=== PATIENT | female | born 1945 | race Caucasian/White ===

== ENCOUNTER 2020-09-21 14:05 | Inpatient (IN) | payer MEDICARE ==
[2020-09-21] MEDS ORDERED: Nitroglycerin 2% Ointment 1 INCH/1 GM Packet ONE (14:56)
[2020-09-21] MEDS ORDERED: Furosemide 100 MG/10 ML VIAL ONE (14:56)
[2020-09-21 16:09] LABS: Troponin I 0.144 ng/mL (< 0.028)
[2020-09-21] MEDS ORDERED: HumaLOG 300 UNITS/3 ML VIAL SC PRN ×2 (17:47)
[2020-09-21] MEDS ORDERED: Dextrose 5% in Water 1,000 ML IV PRN (17:47)
[2020-09-21] MEDS ORDERED: Dextrose 50% Abboject 50 ML SYRINGE SLOW IVP PRN (17:47)
[2020-09-21] MEDS ORDERED: hydrALAZINE 20 MG/ML VIAL SLOW IVP PRN (18:20)
[2020-09-21 19:24] LABS: Troponin I 0.119 ng/mL (< 0.028)
[2020-09-21] MEDS: Acetaminophen 325 MG TAB PO PRN (20:01)
[2020-09-21] MEDS: Nitroglycerin 2% Ointment 1 INCH/1 GM Packet TOP SCH (20:40)
[2020-09-22] MEDS: Furosemide 40 MG/4 ML VIAL SLOW IVP SCH ×2 (05:20→13:41)
[2020-09-22 05:27] LABS: #Eosinphils 0.3 thou/uL (0.0-0.7); #Lymphocytes 1.6 thou/uL (1.20-3.40); #Monocytes 0.6 thou/uL (0.11-0.59); #Neutrophils 4.4 thou/uL (1.40-6.50); %Basophils 0.4 % (0.0-1.0); %Eosinophils 4.6 % (0.0-10.0); %Lymphocytes 22.7 % (21.0-51.0); %Monocytes 8.4 % (0.0-10.0); %Neutrophils 63.9 % (42.0-75.0); Hemoglobin 10.9 g/dL (12.0-16.0); Mean Corpuscular HGB CONC 33.5 g/dL (32.0-36.0); Mean Corpuscular Hemoglobin 30.1 pg (27.0-31.0); Mean Platelet Volume 7.6 fL (7.4-10.4); Platelet Count 118 thou/uL (130-400); RBC Distribution Width 13.2 % (11.5-14.5); Red Blood Cell (RBC) Count 3.61 mill/uL (4.20-5.40); White Blood Cell (WBC) Count 6.8 thou/uL (4.8-10.8)
[2020-09-22 05:47] LABS: Anion Gap 13 mmol/L (10-20); BUN (Urea Nitrogen) 20 mg/dL (9.8-20.1); Calc. Creatinine Clearance 49 mL/min (70-130); Calcium 8.8 mg/dL (7.8-10.44); Carbon Dioxide 26 mmol/L (23-31); Chloride 105 mmol/L (98-107); Glucose 111 mg/dL (83-110); Potassium 3.4 mmol/L (3.5-5.1); Sodium 141 mmol/L (136-145)
[2020-09-22] MEDS: Nitroglycerin 2% Ointment 1 INCH/1 GM Packet TOP SCH (08:32)
[2020-09-22] MEDS: Aspirin Chewable 81 MG TAB PO SCH (08:32)
[2020-09-22] MEDS: Enoxaparin Sodium 40 MG/0.4 ML SYRINGE SC SCH (08:32)
[2020-09-22] MEDS ORDERED: HYDROcodone/Acetaminophen 5/325 mg Tablet PO PRN (09:30)
[2020-09-22] MEDS ORDERED: Cyclobenzaprine 10 MG TAB PO PRN (09:30)
[2020-09-22] MEDS ORDERED: Dicyclomine 20 MG TAB PO PRN (09:30)
[2020-09-22] MEDS ORDERED: FLUoxetine HCl 10 MG CAP PO SCH (09:45)
[2020-09-22] MEDS ORDERED: Potassium Chloride 20 MEQ TAB PO SCH (09:45)
[2020-09-22] MEDS ORDERED: hydrALAZINE 25 MG TAB PO SCH (09:45)
[2020-09-22] MEDS ORDERED: Magnesium Sulfate 2 GM in Sodium Chloride 0.9% 100 ML IVPB SCH (10:30)
[2020-09-22] MEDS ORDERED: Magnesium 2 GM/50 ML 2 GM in Premix Bag 1 BAG IVPB SCH (10:45)
[2020-09-22] MEDS: hydrALAZINE 25 MG TAB PO SCH ×2 (13:42→20:16)
[2020-09-22] MEDS: Acetaminophen 325 MG TAB PO PRN (20:13)
[2020-09-23 05:14] LABS: #Basophils 0.1 thou/uL (0.0-0.2); #Eosinphils 0.4 thou/uL (0.0-0.7); #Monocytes 0.6 thou/uL (0.11-0.59); #Neutrophils 5.1 thou/uL (1.40-6.50); %Eosinophils 5.3 % (0.0-10.0); %Lymphocytes 24.4 % (21.0-51.0); %Monocytes 7.8 % (0.0-10.0); %Neutrophils 61.6 % (42.0-75.0); Hemoglobin 11.9 g/dL (12.0-16.0); Mean Corpuscular HGB CONC 31.7 g/dL (32.0-36.0); Mean Corpuscular Hemoglobin 28.7 pg (27.0-31.0); Mean Corpuscular Volume 90.4 fL (78.0-98.0); Mean Platelet Volume 7.8 fL (7.4-10.4); Platelet Count 164 thou/uL (130-400); RBC Distribution Width 13.4 % (11.5-14.5); Red Blood Cell (RBC) Count 4.14 mill/uL (4.20-5.40); White Blood Cell (WBC) Count 8.3 thou/uL (4.8-10.8)
[2020-09-23] MEDS: Furosemide 40 MG/4 ML VIAL SLOW IVP SCH ×2 (05:19→12:54)
[2020-09-23 08:21] LABS: Anion Gap 10 mmol/L (10-20); BUN (Urea Nitrogen) 25 mg/dL (9.8-20.1); Calc. Creatinine Clearance 47 mL/min (70-130); Calcium 9.1 mg/dL (7.8-10.44); Carbon Dioxide 30 mmol/L (23-31); Chloride 101 mmol/L (98-107); Glucose 123 mg/dL (83-110); Potassium 3.8 mmol/L (3.5-5.1); Sodium 137 mmol/L (136-145)
[2020-09-23] MEDS: Enoxaparin Sodium 40 MG/0.4 ML SYRINGE SC SCH (09:02)
[2020-09-23] MEDS: Atorvastatin Calcium 10 MG TAB PO SCH (09:03)
[2020-09-23] MEDS: hydrALAZINE 25 MG TAB PO SCH ×3 (09:03→22:47)
[2020-09-23] MEDS: Fenofibrate Nanocrystallized 145 MG TAB PO SCH (09:03)
[2020-09-23] MEDS: Febuxostat 40 MG TAB PO SCH (09:04)
[2020-09-23] MEDS: Aspirin Chewable 81 MG TAB PO SCH (09:04)
[2020-09-23] MEDS: Potassium Bicarbonate/Cit Ac 20 MEQ TAB PO SCH (09:04)
[2020-09-23] MEDS: FLUoxetine HCl 10 MG CAP PO SCH (09:24)
[2020-09-24] MEDS: Furosemide 40 MG/4 ML VIAL SLOW IVP SCH (05:36)
[2020-09-24 05:40] LABS: #Basophils 0.1 thou/uL (0.0-0.2); #Eosinphils 0.4 thou/uL (0.0-0.7); #Lymphocytes 1.7 thou/uL (1.20-3.40); #Monocytes 0.6 thou/uL (0.11-0.59); #Neutrophils 5.1 thou/uL (1.40-6.50); %Basophils 0.7 % (0.0-1.0); %Eosinophils 4.8 % (0.0-10.0); %Lymphocytes 21.2 % (21.0-51.0); %Monocytes 7.6 % (0.0-10.0); %Neutrophils 65.6 % (42.0-75.0); Hemoglobin 11.7 g/dL (12.0-16.0); Mean Corpuscular Hemoglobin 29.7 pg (27.0-31.0); Mean Corpuscular Volume 90.1 fL (78.0-98.0); Mean Platelet Volume 7.8 fL (7.4-10.4); Platelet Count 164 thou/uL (130-400); RBC Distribution Width 13.4 % (11.5-14.5); Red Blood Cell (RBC) Count 3.95 mill/uL (4.20-5.40); White Blood Cell (WBC) Count 7.8 thou/uL (4.8-10.8)
[2020-09-24] MEDS: Potassium Bicarbonate/Cit Ac 20 MEQ TAB PO SCH (07:54)
[2020-09-24] MEDS: Atorvastatin Calcium 10 MG TAB PO SCH (07:54)
[2020-09-24] MEDS: hydrALAZINE 25 MG TAB PO SCH (07:54)
[2020-09-24] MEDS: Fenofibrate Nanocrystallized 145 MG TAB PO SCH (07:55)
[2020-09-24] MEDS: Aspirin Chewable 81 MG TAB PO SCH (07:55)
[2020-09-24] MEDS: Enoxaparin Sodium 40 MG/0.4 ML SYRINGE SC SCH (07:56)
[2020-09-24] MEDS: Febuxostat 40 MG TAB PO SCH (08:08)
[2020-09-24] MEDS: FLUoxetine HCl 10 MG CAP PO SCH (08:08)
[2020-09-24 12:47] VITALS: BP 116/58; TEMP 98.5
[2020-09-25] MEDS ORDERED: Torsemide 20 MG TAB PO SCH (09:00)
== END 2020-09-24 15:06 | disposition home or self-care (01) | DRG 280 ==
LOC: SUATTDRO 14:05 → ERS 14:05 → 2SW 15:12 → OBSVTOIN 09-23 13:39
PROVIDERS: ADMIT Internal Medicine; ATTEND Internal Medicine
DX: I13.0 Hypertensive heart and chronic kidney disease with heart failure and stage 1 through stage 4 chronic kidney disease, or unspecified chronic kidney disease (principal); I50.33 Acute on chronic diastolic (congestive) heart failure; I21.A1 Myocardial infarction type 2; J96.01 Acute respiratory failure with hypoxia; N18.4 Chronic kidney disease, stage 4 (severe); Z68.41 Body mass index [BMI] 40.0-44.9, adult; Z20.822 Contact with and (suspected) exposure to COVID-19; E11.22 Type 2 diabetes mellitus with diabetic chronic kidney disease; J45.909 Unspecified asthma, uncomplicated; M19.90 Unspecified osteoarthritis, unspecified site; F41.9 Anxiety disorder, unspecified; E87.6 Hypokalemia; E83.42 Hypomagnesemia; E66.01 Morbid (severe) obesity due to excess calories; E78.5 Hyperlipidemia, unspecified; D63.1 Anemia in chronic kidney disease; D69.6 Thrombocytopenia, unspecified; I08.3 Combined rheumatic disorders of mitral, aortic and tricuspid valves; Q24.8 Other specified congenital malformations of heart; Z91.14 Patient's other noncompliance with medication regimen; Z90.49 Acquired absence of other specified parts of digestive tract; Z87.891 Personal history of nicotine dependence; Z79.899 Other long term (current) drug therapy; Z79.84 Long term (current) use of oral hypoglycemic drugs
CPT/HCPCS: 36415; 36416; 80048; 83735; 84443; 85025; 93306; 93798; 96372; 96374; 96375; 96376; 97139; G0378; J1650; J1940; J3475

== ENCOUNTER 2021-12-22 12:52 | Outpatient (CLI) | payer MEDICARE | END 2021-12-22 12:53 | disposition home or self-care (01) | LOC: SCSMRI 12:52 | PROVIDERS: ATTEND Orthopaedic Surgery | DX: S43.004A Unspecified dislocation of right shoulder joint, initial encounter (principal); S42.141D Displaced fracture of glenoid cavity of scapula, right shoulder, subsequent encounter for fracture with routine healing; S46.811A Strain of other muscles, fascia and tendons at shoulder and upper arm level, right arm, initial encounter; M75.121 Complete rotator cuff tear or rupture of right shoulder, not specified as traumatic; R58 Hemorrhage, not elsewhere classified; R60.0 Localized edema; M65.811 Other synovitis and tenosynovitis, right shoulder ==

== ENCOUNTER 2023-06-20 00:28 | Inpatient (IN) | payer OTHER ==
[2023-06-20] MEDS ORDERED: Morphine 2 MG/ML VIAL ONE (01:00)
[2023-06-20 01:45] LABS: Troponin I 0.081 ng/mL (< 0.028)
[2023-06-20] MEDS ORDERED: Cyclobenzaprine 10 MG TAB PO PRN ×2 (02:39→13:02)
[2023-06-20] MEDS ORDERED: Dicyclomine 20 MG TAB PO PRN (02:39)
[2023-06-20] MEDS ORDERED: Lactated Ringer's 1,000 ML IV SCH (03:00)
[2023-06-20 03:55] LABS: #Eosinphils 0.1 thou/uL (0.0-0.7); #Monocytes 0.9 thou/uL (0.11-0.59); #Neutrophils 5.9 thou/uL (1.40-6.50); %Basophils 0.5 % (0.0-1.0); %Eosinophils 1.2 % (0.0-10.0); %Lymphocytes 9.6 % (21.0-51.0); %Monocytes 11.3 % (0.0-10.0); %Neutrophils 76.7 % (42.0-75.0); Hematocrit 32.3 % (36.0-47.0); Mean Corpuscular Hemoglobin 27.4 pg (27.0-31.0); Mean Corpuscular Volume 88.5 fl (78.0-98.0); Mean Platelet Volume 9.8 fL (7.4-10.4); Platelet Count 182 10x3/uL (130-400); RBC Distribution Width 15.1 % (11.5-14.5); Red Blood Cell (RBC) Count 3.65 mill/uL (4.20-5.40); White Blood Cell (WBC) Count 7.7 10x3/uL (4.8-10.8)
[2023-06-20 04:15] LABS: Anion Gap 13 mmol/L (10-20); BUN (Urea Nitrogen) 21 mg/dL (9.8-20.1); Calc. Creatinine Clearance 0 mL/min (70-130); Calcium 8.8 mg/dL (7.8-10.44); Carbon Dioxide 27 mmol/L (23-31); Chloride 104 mmol/L (98-107); Estimated GFR 19; Glucose 129 mg/dL (83-110); Magnesium 1.8 mg/dL (1.6-2.6); Potassium 3.5 mmol/L (3.5-5.1); Sodium 140 mmol/L (136-145)
[2023-06-20 04:34] LABS: Troponin I 0.086 ng/mL (< 0.028)
[2023-06-20 04:40] LABS: INR-International Normal Ratio 1.5; PTT 35.4 sec (22.9-36.1); Prothrombin Time 18.8 sec (12.0-14.7)
[2023-06-20] MEDS ORDERED: Acetaminophen 500 MG TAB ONE ×2 (05:01→11:35)
[2023-06-20] MEDS: Acetaminophen 500 MG TAB PO SCH ×2 (05:06→10:52)
[2023-06-20] MEDS ORDERED: hydrALAZINE 25 MG TAB PO SCH (09:00)
[2023-06-20] MEDS ORDERED: HYDROcodone/Acetaminophen 5/325 mg Tablet PO PRN (10:44)
[2023-06-20] MEDS ORDERED: Acetaminophen 500 MG TAB PO SCH (11:00)
[2023-06-20 11:35] LABS: Troponin I 0.072 ng/mL (< 0.028)
[2023-06-20] MEDS ORDERED: hydrALAZINE 25 MG TAB ONE (11:35)
[2023-06-20 11:36] LABS: Troponin I 0.062 ng/mL (< 0.028)
[2023-06-20] MEDS ORDERED: Polyethylene Glycol 3350 17 GM Packet ONE (11:36)
[2023-06-20] MEDS ORDERED: Senokot S 8.6-50 MG TAB ONE (11:36)
[2023-06-20] MEDS ORDERED: Atorvastatin Calcium 10 MG TAB ONE (11:36)
[2023-06-20] MEDS ORDERED: Gabapentin 100 MG CAP ONE (11:36)
[2023-06-20] MEDS: FLUoxetine HCl 10 MG CAP PO SCH (12:02)
[2023-06-20] MEDS: Gabapentin 100 MG CAP PO SCH ×2 (12:02→21:43)
[2023-06-20] MEDS: Atorvastatin Calcium 10 MG TAB PO SCH (12:02)
[2023-06-20] MEDS: Senokot S 8.6-50 MG TAB PO SCH ×2 (12:03→21:44)
[2023-06-20] MEDS: Polyethylene Glycol 3350 17 GM Packet PO SCH (12:03)
[2023-06-20] MEDS ORDERED: cloNIDine 0.1 MG TAB PO PRN (12:54)
[2023-06-20] MEDS ORDERED: Losartan 25 MG TAB PO SCH (13:00)
[2023-06-20] MEDS ORDERED: Morphine 2 MG/ML VIAL SLOW IVP PRN (13:02)
[2023-06-20] MEDS ORDERED: Metoprolol Tartrate 25 MG TAB ONE (13:24)
[2023-06-20] MEDS: Acetaminophen 325 MG TAB PO SCH (15:53)
[2023-06-20 16:57] VITALS: BMI 34.4
[2023-06-20 18:28] LABS: Anion Gap 13 mmol/L (10-20); BUN (Urea Nitrogen) 21 mg/dL (9.8-20.1); Calc. Creatinine Clearance 24 mL/min (70-130); Calcium 8.9 mg/dL (7.8-10.44); Carbon Dioxide 24 mmol/L (23-31); Chloride 106 mmol/L (98-107); Estimated GFR 18; Glucose 123 mg/dL (83-110); Potassium 3.6 mmol/L (3.5-5.1); Sodium 139 mmol/L (136-145)
[2023-06-20] MEDS: Mometasone 100 MCG/Formoterol 5 MCG 120 PUFF INHALER INH SCH (19:52)
[2023-06-20] MEDS: tiZANidine HCl 4 MG TAB PO SCH (21:44)
[2023-06-21] MEDS: Acetaminophen 325 MG TAB PO SCH ×4 (02:59→17:13)
[2023-06-21] MEDS: Mometasone 100 MCG/Formoterol 5 MCG 120 PUFF INHALER INH SCH ×2 (06:51→19:00)
[2023-06-21] MEDS: Polyethylene Glycol 3350 17 GM Packet PO SCH (10:36)
[2023-06-21] MEDS: Lactated Ringer's 1,000 ML IV SCH ×3 (10:36→17:15)
[2023-06-21] MEDS: Fenofibrate Nanocrystallized 145 MG TAB PO SCH (10:37)
[2023-06-21] MEDS: Febuxostat 40 MG TAB PO SCH (10:37)
[2023-06-21] MEDS: Losartan 25 MG TAB PO SCH (10:37)
[2023-06-21] MEDS: Senokot S 8.6-50 MG TAB PO SCH ×2 (10:37→21:13)
[2023-06-21] MEDS: Atorvastatin Calcium 10 MG TAB PO SCH (10:38)
[2023-06-21] MEDS: Isosorbide Dinitrate 20 MG TAB PO SCH (10:41)
[2023-06-21] MEDS: Gabapentin 100 MG CAP PO SCH ×2 (10:41→21:12)
[2023-06-21] MEDS: FLUoxetine HCl 10 MG CAP PO SCH (10:42)
[2023-06-21 15:03] LABS: Anion Gap 14 mmol/L (10-20); BUN (Urea Nitrogen) 24 mg/dL (9.8-20.1); Calc. Creatinine Clearance 24 mL/min (70-130); Calcium 8.6 mg/dL (7.8-10.44); Carbon Dioxide 24 mmol/L (23-31); Chloride 101 mmol/L (98-107); Estimated GFR 17; Glucose 149 mg/dL (83-110); Potassium 3.5 mmol/L (3.5-5.1); Sodium 135 mmol/L (136-145)
[2023-06-21 18:31] LABS: Bacteria/HPF 3+ HPF (None Seen); Bilirubin Negative (Negative); Blood, Urine Negative (Negative); CAUTI Indications for Culture Acute Hematuria; Calcium Oxalate Crystals Rare HPF (None Seen); Clarity Turbid (Clear); Glucose, Urine (Dipstick) 100 mg/dL (Negative); Ketone, Urine Negative (Negative); Leukocyte Negative Leu/uL (Negative); Nitrite Negative (Negative); Protein, Urine (Dipstick) 600 mg/dL (Neg-Trace); RBC/HPF 0-3 HPF (0-3); Specific Gravity, Urine 1.025 (1.002-1.036); Squamous Epithelial 0-3 HPF (0-3); Urobilinogen Normal mg/dL (Less than 2); WBC/HPF 0-3 HPF (0-3)
[2023-06-21 18:36] LABS: Urine Culture Reflex No No
[2023-06-21] MEDS: tiZANidine HCl 4 MG TAB PO SCH (21:12)
[2023-06-22] MEDS: Acetaminophen 325 MG TAB PO SCH ×5 (00:46→23:18)
[2023-06-22 05:11] LABS: #Basophils 0.1 thou/uL (0.0-0.2); #Eosinphils 0.3 thou/uL (0.0-0.7); #Neutrophils 5.1 thou/uL (1.40-6.50); %Eosinophils 3.5 % (0.0-10.0); %Neutrophils 69.2 % (42.0-75.0); Hematocrit 31.2 % (36.0-47.0); Hemoglobin 9.5 g/dL (12.0-16.0); Mean Corpuscular HGB CONC 30.4 g/dL (32.0-36.0); Mean Corpuscular Hemoglobin 27.3 pg (27.0-31.0); Mean Corpuscular Volume 89.7 fl (78.0-98.0); Mean Platelet Volume 10.1 fL (7.4-10.4); Platelet Count 200 10x3/uL (130-400); RBC Distribution Width 15.4 % (11.5-14.5); Red Blood Cell (RBC) Count 3.48 mill/uL (4.20-5.40); White Blood Cell (WBC) Count 7.3 10x3/uL (4.8-10.8)
[2023-06-22 06:00] LABS: Anion Gap 13 mmol/L (10-20); BUN (Urea Nitrogen) 29 mg/dL (9.8-20.1); Calc. Creatinine Clearance 22 mL/min (70-130); Calcium 8.5 mg/dL (7.8-10.44); Carbon Dioxide 24 mmol/L (23-31); Chloride 101 mmol/L (98-107); Estimated GFR 16; Glucose 144 mg/dL (83-110); Potassium 3.7 mmol/L (3.5-5.1); Sodium 134 mmol/L (136-145)
[2023-06-22] MEDS: Mometasone 100 MCG/Formoterol 5 MCG 120 PUFF INHALER INH SCH ×2 (07:05→19:19)
[2023-06-22] MEDS: Febuxostat 40 MG TAB PO SCH (09:28)
[2023-06-22] MEDS: Losartan 25 MG TAB PO SCH (09:28)
[2023-06-22] MEDS: Fenofibrate Nanocrystallized 145 MG TAB PO SCH (09:29)
[2023-06-22] MEDS: Atorvastatin Calcium 10 MG TAB PO SCH (09:29)
[2023-06-22] MEDS: Senokot S 8.6-50 MG TAB PO SCH ×2 (09:30→20:29)
[2023-06-22] MEDS: Gabapentin 100 MG CAP PO SCH (09:30)
[2023-06-22] MEDS: FLUoxetine HCl 10 MG CAP PO SCH (09:30)
[2023-06-22] MEDS: Isosorbide Dinitrate 20 MG TAB PO SCH (09:30)
[2023-06-22] MEDS: Polyethylene Glycol 3350 17 GM Packet PO SCH (09:31)
[2023-06-22] MEDS: Heparin 5,000 UNITS/ML VIAL SC SCH ×2 (09:38→20:26)
[2023-06-22] MEDS ORDERED: Sodium Bicarbonate 150 MEQ in Dextrose 5% in Water 1,000 ML IV SCH (15:00)
[2023-06-22] MEDS ORDERED: cefTRIAXone\\ROCEPHIN 1 GM in Sodium Chloride 0.9% 100 ML IVPB SCH (15:00)
[2023-06-22] MEDS ORDERED: Furosemide 40 MG (4 mL) VIAL SLOW IVP SCH (17:45)
[2023-06-22] MEDS ORDERED: Piperacillin/Tazobactam 3.375 GM in Sodium Chloride 0.9% 100 ML IVPB SCH (18:15)
[2023-06-22] MEDS: Albumin 25% 25 GM (100 mL) BOT IVPB SCH (23:17)
[2023-06-22] MEDS: Piperacillin/Tazobactam 3.375 GM in Sodium Chloride 0.9% 100 ML IVPB SCH (23:17)
[2023-06-23] MEDS: Acetaminophen 325 MG TAB PO SCH ×4 (06:08→23:54)
[2023-06-23] MEDS: Albumin 25% 25 GM (100 mL) BOT IVPB SCH ×4 (06:09→23:55)
[2023-06-23] MEDS: Mometasone 100 MCG/Formoterol 5 MCG 120 PUFF INHALER INH SCH ×2 (08:05→19:12)
[2023-06-23] MEDS ORDERED: Torsemide 20 MG TAB PO SCH (09:00)
[2023-06-23] MEDS: Fenofibrate Nanocrystallized 145 MG TAB PO SCH (10:03)
[2023-06-23] MEDS: FLUoxetine HCl 10 MG CAP PO SCH (10:03)
[2023-06-23] MEDS: Atorvastatin Calcium 10 MG TAB PO SCH (10:07)
[2023-06-23] MEDS: Isosorbide Dinitrate 20 MG TAB PO SCH (10:07)
[2023-06-23] MEDS: Heparin 5,000 UNITS/ML VIAL SC SCH ×2 (10:08→19:57)
[2023-06-23] MEDS: Febuxostat 40 MG TAB PO SCH (10:08)
[2023-06-23] MEDS: Polyethylene Glycol 3350 17 GM Packet PO SCH (10:09)
[2023-06-23] MEDS: Senokot S 8.6-50 MG TAB PO SCH ×2 (10:09→19:56)
[2023-06-23] MEDS: Piperacillin/Tazobactam 3.375 GM in Sodium Chloride 0.9% 100 ML IVPB SCH ×2 (11:57→23:54)
[2023-06-23] MEDS ORDERED: Atorvastatin Calcium 10 MG TAB PO SCH (12:30)
[2023-06-23 14:57] LABS: #Basophils 0.1 thou/uL (0.0-0.2); #Eosinphils 0.2 thou/uL (0.0-0.7); #Monocytes 0.6 thou/uL (0.11-0.59); #Neutrophils 5.4 thou/uL (1.40-6.50); %Basophils 0.7 % (0.0-1.0); %Eosinophils 2.9 % (0.0-10.0); %Lymphocytes 9.1 % (21.0-51.0); %Monocytes 9.2 % (0.0-10.0); %Neutrophils 77.2 % (42.0-75.0); Hematocrit 30.9 % (36.0-47.0); Hemoglobin 9.7 g/dL (12.0-16.0); Mean Corpuscular HGB CONC 31.4 g/dL (32.0-36.0); Mean Corpuscular Hemoglobin 27.5 pg (27.0-31.0); Mean Corpuscular Volume 87.5 fl (78.0-98.0); Mean Platelet Volume 9.9 fL (7.4-10.4); Platelet Count 162 10x3/uL (130-400); RBC Distribution Width 15.6 % (11.5-14.5); Red Blood Cell (RBC) Count 3.53 mill/uL (4.20-5.40)
[2023-06-23 15:14] LABS: Anion Gap 14 mmol/L (10-20); BUN (Urea Nitrogen) 35 mg/dL (9.8-20.1); Calc. Creatinine Clearance 20 mL/min (70-130); Calcium 8.6 mg/dL (7.8-10.44); Carbon Dioxide 23 mmol/L (23-31); Chloride 100 mmol/L (98-107); Estimated GFR 14; Glucose 134 mg/dL (83-110); Magnesium 1.8 mg/dL (1.6-2.6); Phosphorus 4.6 mg/dL (2.3-4.7); Potassium 3.6 mmol/L (3.5-5.1); Sodium 133 mmol/L (136-145)
[2023-06-24] MEDS ORDERED: Ondansetron PF 4 MG/2 ML Vial IVP PRN (01:09)
[2023-06-24] MEDS ORDERED: Ipratropium/Albuterol 3 ML NEB NEB SCH (01:15)
[2023-06-24] MEDS: Ipratropium/Albuterol 3 ML NEB NEB SCH ×6 (01:27→23:36)
[2023-06-24] MEDS: Acetaminophen 325 MG TAB PO SCH ×4 (07:08→23:59)
[2023-06-24] MEDS: Albumin 25% 25 GM (100 mL) BOT IVPB SCH ×3 (07:09→18:03)
[2023-06-24] MEDS: Mometasone 100 MCG/Formoterol 5 MCG 120 PUFF INHALER INH SCH ×2 (07:12→20:26)
[2023-06-24 07:44] LABS: #Eosinphils 0.1 thou/uL (0.0-0.7); #Monocytes 0.5 thou/uL (0.11-0.59); #Neutrophils 4.9 thou/uL (1.40-6.50); %Basophils 0.7 % (0.0-1.0); %Eosinophils 1.3 % (0.0-10.0); %Monocytes 7.8 % (0.0-10.0); %Neutrophils 80.7 % (42.0-75.0); Hematocrit 29.9 % (36.0-47.0); Hemoglobin 9.2 g/dL (12.0-16.0); Mean Corpuscular HGB CONC 30.8 g/dL (32.0-36.0); Mean Corpuscular Hemoglobin 27.7 pg (27.0-31.0); Mean Corpuscular Volume 90.1 fl (78.0-98.0); Mean Platelet Volume 9.6 fL (7.4-10.4); Platelet Count 180 10x3/uL (130-400); RBC Distribution Width 15.4 % (11.5-14.5); Red Blood Cell (RBC) Count 3.32 mill/uL (4.20-5.40)
[2023-06-24 08:12] LABS: Anion Gap 15 mmol/L (10-20); BUN (Urea Nitrogen) 35 mg/dL (9.8-20.1); Calc. Creatinine Clearance 19 mL/min (70-130); Calcium 8.8 mg/dL (7.8-10.44); Carbon Dioxide 24 mmol/L (23-31); Chloride 101 mmol/L (98-107); Estimated GFR 13; Glucose 120 mg/dL (83-110); Magnesium 1.9 mg/dL (1.6-2.6); Phosphorus 5.1 mg/dL (2.3-4.7); Potassium 4.2 mmol/L (3.5-5.1); Sodium 136 mmol/L (136-145)
[2023-06-24] MEDS: FLUoxetine HCl 10 MG CAP PO SCH (09:54)
[2023-06-24] MEDS: Isosorbide Dinitrate 20 MG TAB PO SCH (09:54)
[2023-06-24] MEDS: Atorvastatin Calcium 10 MG TAB PO SCH (09:55)
[2023-06-24] MEDS: Heparin 5,000 UNITS/ML VIAL SC SCH ×3 (09:55→20:40)
[2023-06-24] MEDS: Polyethylene Glycol 3350 17 GM Packet PO SCH (09:55)
[2023-06-24] MEDS: Senokot S 8.6-50 MG TAB PO SCH ×2 (09:55→20:53)
[2023-06-24] MEDS: Fenofibrate Nanocrystallized 145 MG TAB PO SCH (09:55)
[2023-06-24] MEDS: Febuxostat 40 MG TAB PO SCH (09:55)
[2023-06-24] MEDS: Piperacillin/Tazobactam 3.375 GM in Sodium Chloride 0.9% 100 ML IVPB SCH ×2 (12:08→23:59)
[2023-06-24] MEDS ORDERED: Furosemide 40 MG (4 mL) VIAL SLOW IVP SCH (18:30)
[2023-06-25] MEDS: Ipratropium/Albuterol 3 ML NEB NEB SCH ×5 (01:47→19:55)
[2023-06-25] MEDS: Acetaminophen 325 MG TAB PO SCH ×4 (04:25→23:26)
[2023-06-25] MEDS: Mometasone 100 MCG/Formoterol 5 MCG 120 PUFF INHALER INH SCH ×2 (08:19→19:58)
[2023-06-25] MEDS: Isosorbide Dinitrate 20 MG TAB PO SCH (08:46)
[2023-06-25] MEDS: Atorvastatin Calcium 10 MG TAB PO SCH (08:46)
[2023-06-25] MEDS: Fenofibrate Nanocrystallized 145 MG TAB PO SCH (08:46)
[2023-06-25] MEDS: Amoxicillin/Potassium Clav 500 MG TAB PO SCH ×2 (08:46→21:35)
[2023-06-25] MEDS: Saccharomyces boulardii 250 MG CAP PO SCH (08:46)
[2023-06-25] MEDS: Febuxostat 40 MG TAB PO SCH (08:46)
[2023-06-25] MEDS: FLUoxetine HCl 10 MG CAP PO SCH (08:46)
[2023-06-25] MEDS: Heparin 5,000 UNITS/ML VIAL SC SCH ×3 (08:47→21:35)
[2023-06-25] MEDS ORDERED: Saccharomyces boulardii 250 MG CAP PO SCH (09:00)
[2023-06-25] MEDS: Polyethylene Glycol 3350 17 GM Packet PO SCH (10:28)
[2023-06-25] MEDS: Senokot S 8.6-50 MG TAB PO SCH ×2 (10:28→21:35)
[2023-06-25 13:43] LABS: #Basophils 0.1 thou/uL (0.0-0.2); #Eosinphils 0.2 thou/uL (0.0-0.7); #Monocytes 0.7 thou/uL (0.11-0.59); #Neutrophils 6.5 thou/uL (1.40-6.50); %Basophils 0.8 % (0.0-1.0); %Eosinophils 2.1 % (0.0-10.0); %Lymphocytes 6.9 % (21.0-51.0); %Monocytes 8.3 % (0.0-10.0); %Neutrophils 81.1 % (42.0-75.0); Hemoglobin 9.3 g/dL (12.0-16.0); Mean Corpuscular Hemoglobin 27.3 pg (27.0-31.0); Mean Corpuscular Volume 90.9 fl (78.0-98.0); Mean Platelet Volume 10.4 fL (7.4-10.4); Platelet Count 217 10x3/uL (130-400); RBC Distribution Width 15.8 % (11.5-14.5); Red Blood Cell (RBC) Count 3.41 mill/uL (4.20-5.40)
[2023-06-25 14:31] LABS: Anion Gap 18 mmol/L (10-20); BUN (Urea Nitrogen) 38 mg/dL (9.8-20.1); Calc. Creatinine Clearance 20 mL/min (70-130); Calcium 8.9 mg/dL (7.8-10.44); Carbon Dioxide 20 mmol/L (23-31); Chloride 104 mmol/L (98-107); Estimated GFR 14; Glucose 116 mg/dL (83-110); Potassium 4.5 mmol/L (3.5-5.1); Sodium 137 mmol/L (136-145)
[2023-06-25] MEDS ORDERED: Furosemide 40 MG (4 mL) VIAL SLOW IVP SCH (15:30)
[2023-06-25 21:48] LABS: #Basophils 0.1 thou/uL (0.0-0.2); #Eosinphils 0.3 thou/uL (0.0-0.7); #Monocytes 0.9 thou/uL (0.11-0.59); #Neutrophils 7.8 thou/uL (1.40-6.50); %Basophils 0.9 % (0.0-1.0); %Eosinophils 2.5 % (0.0-10.0); %Lymphocytes 10.5 % (21.0-51.0); %Monocytes 8.9 % (0.0-10.0); %Neutrophils 76.7 % (42.0-75.0); Hematocrit 31.9 % (36.0-47.0); Mean Corpuscular HGB CONC 31.3 g/dL (32.0-36.0); Mean Corpuscular Hemoglobin 27.8 pg (27.0-31.0); Mean Corpuscular Volume 88.6 fl (78.0-98.0); Mean Platelet Volume 9.4 fL (7.4-10.4); Platelet Count 269 10x3/uL (130-400); RBC Distribution Width 15.5 % (11.5-14.5); White Blood Cell (WBC) Count 10.1 10x3/uL (4.8-10.8)
[2023-06-25 22:07] LABS: Anion Gap 17 mmol/L (10-20); BUN (Urea Nitrogen) 38 mg/dL (9.8-20.1); Calc. Creatinine Clearance 20 mL/min (70-130); Calcium 9.1 mg/dL (7.8-10.44); Carbon Dioxide 22 mmol/L (23-31); Chloride 102 mmol/L (98-107); Estimated GFR 14; Glucose 140 mg/dL (83-110); Phosphorus 4.5 mg/dL (2.3-4.7); Potassium 3.9 mmol/L (3.5-5.1); Sodium 137 mmol/L (136-145)
[2023-06-26] MEDS: Ipratropium/Albuterol 3 ML NEB NEB SCH ×4 (03:37→10:34)
[2023-06-26] MEDS: Acetaminophen 325 MG TAB PO SCH ×4 (04:47→23:54)
[2023-06-26 04:56] LABS: #Basophils 0.1 thou/uL (0.0-0.2); #Eosinphils 0.2 thou/uL (0.0-0.7); #Monocytes 0.7 thou/uL (0.11-0.59); #Neutrophils 5.5 thou/uL (1.40-6.50); %Basophils 0.9 % (0.0-1.0); %Monocytes 9.4 % (0.0-10.0); %Neutrophils 74.2 % (42.0-75.0); Hematocrit 32.1 % (36.0-47.0); Hemoglobin 9.6 g/dL (12.0-16.0); Mean Corpuscular HGB CONC 29.9 g/dL (32.0-36.0); Mean Corpuscular Volume 90.4 fl (78.0-98.0); Mean Platelet Volume 9.3 fL (7.4-10.4); Platelet Count 191 10x3/uL (130-400); RBC Distribution Width 15.5 % (11.5-14.5); Red Blood Cell (RBC) Count 3.55 mill/uL (4.20-5.40); White Blood Cell (WBC) Count 7.5 10x3/uL (4.8-10.8)
[2023-06-26 05:22] LABS: Anion Gap 13 mmol/L (10-20); BUN (Urea Nitrogen) 39 mg/dL (9.8-20.1); Calc. Creatinine Clearance 20 mL/min (70-130); Calcium 9.3 mg/dL (7.8-10.44); Carbon Dioxide 25 mmol/L (23-31); Chloride 102 mmol/L (98-107); Estimated GFR 14; Glucose 111 mg/dL (83-110); Potassium 3.6 mmol/L (3.5-5.1); Sodium 136 mmol/L (136-145)
[2023-06-26] MEDS: Mometasone 100 MCG/Formoterol 5 MCG 120 PUFF INHALER INH SCH ×2 (07:56→19:23)
[2023-06-26] MEDS ORDERED: Furosemide 40 MG TAB PO SCH (08:15)
[2023-06-26] MEDS: FLUoxetine HCl 10 MG CAP PO SCH (08:23)
[2023-06-26] MEDS: Fenofibrate Nanocrystallized 145 MG TAB PO SCH (08:23)
[2023-06-26] MEDS: Senokot S 8.6-50 MG TAB PO SCH ×2 (08:23→19:56)
[2023-06-26] MEDS: Amoxicillin/Potassium Clav 500 MG TAB PO SCH ×2 (08:23→19:56)
[2023-06-26] MEDS: Polyethylene Glycol 3350 17 GM Packet PO SCH (08:23)
[2023-06-26] MEDS: Saccharomyces boulardii 250 MG CAP PO SCH (08:24)
[2023-06-26] MEDS: Febuxostat 40 MG TAB PO SCH (08:24)
[2023-06-26] MEDS: Atorvastatin Calcium 10 MG TAB PO SCH (08:24)
[2023-06-26] MEDS: Heparin 5,000 UNITS/ML VIAL SC SCH ×3 (08:24→19:56)
[2023-06-26] MEDS: Isosorbide Dinitrate 20 MG TAB PO SCH (08:24)
[2023-06-26] MEDS ORDERED: Ipratropium/Albuterol 3 ML NEB NEB PRN (10:54)
[2023-06-27] MEDS: Acetaminophen 325 MG TAB PO SCH ×4 (04:21→22:50)
[2023-06-27 05:31] LABS: #Basophils 0.1 thou/uL (0.0-0.2); #Eosinphils 0.2 thou/uL (0.0-0.7); #Monocytes 0.7 thou/uL (0.11-0.59); #Neutrophils 5.1 thou/uL (1.40-6.50); %Basophils 1.3 % (0.0-1.0); %Eosinophils 3.3 % (0.0-10.0); %Lymphocytes 11.5 % (21.0-51.0); %Monocytes 10.6 % (0.0-10.0); %Neutrophils 72.6 % (42.0-75.0); Hematocrit 30.5 % (36.0-47.0); Hemoglobin 9.1 g/dL (12.0-16.0); Mean Corpuscular HGB CONC 29.8 g/dL (32.0-36.0); Mean Corpuscular Hemoglobin 27.2 pg (27.0-31.0); Mean Platelet Volume 9.7 fL (7.4-10.4); Platelet Count 194 10x3/uL (130-400); RBC Distribution Width 15.6 % (11.5-14.5); Red Blood Cell (RBC) Count 3.35 mill/uL (4.20-5.40)
[2023-06-27 05:52] LABS: Anion Gap 14 mmol/L (10-20); BUN (Urea Nitrogen) 39 mg/dL (9.8-20.1); Calc. Creatinine Clearance 21 mL/min (70-130); Calcium 9.1 mg/dL (7.8-10.44); Carbon Dioxide 25 mmol/L (23-31); Chloride 103 mmol/L (98-107); Estimated GFR 15; Glucose 128 mg/dL (83-110); Potassium 3.5 mmol/L (3.5-5.1); Sodium 138 mmol/L (136-145)
[2023-06-27] MEDS: cloNIDine 0.1 MG TAB PO SCH ×2 (06:25→17:22)
[2023-06-27] MEDS: Furosemide 40 MG TAB PO SCH (06:25)
[2023-06-27] MEDS: Mometasone 100 MCG/Formoterol 5 MCG 120 PUFF INHALER INH SCH ×2 (06:41→18:36)
[2023-06-27] MEDS: Polyethylene Glycol 3350 17 GM Packet PO SCH (09:30)
[2023-06-27] MEDS: Senokot S 8.6-50 MG TAB PO SCH ×2 (09:30→19:50)
[2023-06-27] MEDS: Heparin 5,000 UNITS/ML VIAL SC SCH ×3 (09:30→19:50)
[2023-06-27] MEDS: Atorvastatin Calcium 10 MG TAB PO SCH (09:31)
[2023-06-27] MEDS: FLUoxetine HCl 10 MG CAP PO SCH (09:31)
[2023-06-27] MEDS: Amoxicillin/Potassium Clav 500 MG TAB PO SCH ×2 (09:31→19:50)
[2023-06-27] MEDS: Isosorbide Dinitrate 20 MG TAB PO SCH (09:31)
[2023-06-27] MEDS: Febuxostat 40 MG TAB PO SCH (09:31)
[2023-06-27] MEDS: Fenofibrate Nanocrystallized 145 MG TAB PO SCH (09:31)
[2023-06-27] MEDS: Saccharomyces boulardii 250 MG CAP PO SCH (09:31)
[2023-06-28] MEDS: Acetaminophen 325 MG TAB PO SCH ×4 (04:40→22:07)
[2023-06-28] MEDS: cloNIDine 0.1 MG TAB PO SCH ×2 (05:39→17:45)
[2023-06-28] MEDS: Furosemide 40 MG TAB PO SCH (05:39)
[2023-06-28 05:54] LABS: #Eosinphils 0.2 thou/uL (0.0-0.7); #Monocytes 0.7 thou/uL (0.11-0.59); %Basophils 0.6 % (0.0-1.0); %Eosinophils 2.6 % (0.0-10.0); %Monocytes 9.9 % (0.0-10.0); %Neutrophils 75.3 % (42.0-75.0); Hematocrit 29.5 % (36.0-47.0); Hemoglobin 8.9 g/dL (12.0-16.0); Mean Corpuscular HGB CONC 30.2 g/dL (32.0-36.0); Mean Corpuscular Hemoglobin 27.6 pg (27.0-31.0); Mean Corpuscular Volume 91.3 fl (78.0-98.0); Mean Platelet Volume 9.6 fL (7.4-10.4); Platelet Count 178 10x3/uL (130-400); RBC Distribution Width 15.7 % (11.5-14.5); Red Blood Cell (RBC) Count 3.23 mill/uL (4.20-5.40); White Blood Cell (WBC) Count 6.7 10x3/uL (4.8-10.8)
[2023-06-28 06:21] LABS: Anion Gap 14 mmol/L (10-20); BUN (Urea Nitrogen) 38 mg/dL (9.8-20.1); Calc. Creatinine Clearance 23 mL/min (70-130); Calcium 9.5 mg/dL (7.8-10.44); Carbon Dioxide 26 mmol/L (23-31); Chloride 103 mmol/L (98-107); Estimated GFR 16; Glucose 128 mg/dL (83-110); Potassium 3.5 mmol/L (3.5-5.1); Sodium 139 mmol/L (136-145)
[2023-06-28] MEDS: Mometasone 100 MCG/Formoterol 5 MCG 120 PUFF INHALER INH SCH ×2 (08:42→19:30)
[2023-06-28] MEDS ORDERED: EPOETIN ALFA-EPBX 10,000 UNITS/ML VIAL SC SCH (09:00)
[2023-06-28] MEDS: Isosorbide Dinitrate 20 MG TAB PO SCH (10:44)
[2023-06-28] MEDS: Amoxicillin/Potassium Clav 500 MG TAB PO SCH ×2 (10:44→20:39)
[2023-06-28] MEDS: Fenofibrate Nanocrystallized 145 MG TAB PO SCH (10:45)
[2023-06-28] MEDS: Saccharomyces boulardii 250 MG CAP PO SCH (10:45)
[2023-06-28] MEDS: FLUoxetine HCl 10 MG CAP PO SCH (10:45)
[2023-06-28] MEDS: Senokot S 8.6-50 MG TAB PO SCH (10:46)
[2023-06-28] MEDS: Polyethylene Glycol 3350 17 GM Packet PO SCH (10:46)
[2023-06-28] MEDS: Febuxostat 40 MG TAB PO SCH (10:46)
[2023-06-28] MEDS: Atorvastatin Calcium 10 MG TAB PO SCH (10:53)
[2023-06-28] MEDS: Heparin 5,000 UNITS/ML VIAL SC SCH ×3 (10:53→20:39)
[2023-06-28] MEDS ORDERED: Polyethylene Glycol 3350 17 GM Packet PO PRN (18:45)
[2023-06-28] MEDS ORDERED: Diphenoxylate HCl/Atropine Tablet PO PRN (18:53)
[2023-06-28] MEDS: Ferrous Sulfate 325 MG TAB PO SCH (20:38)
[2023-06-29] MEDS: Acetaminophen 325 MG TAB PO SCH ×3 (05:28→17:31)
[2023-06-29 05:31] LABS: #Basophils 0.1 thou/uL (0.0-0.2); #Eosinphils 0.2 thou/uL (0.0-0.7); #Monocytes 0.5 thou/uL (0.11-0.59); #Neutrophils 3.6 thou/uL (1.40-6.50); %Eosinophils 3.7 % (0.0-10.0); %Lymphocytes 14.4 % (21.0-51.0); %Monocytes 9.7 % (0.0-10.0); %Neutrophils 70.6 % (42.0-75.0); Hematocrit 29.2 % (36.0-47.0); Hemoglobin 8.7 g/dL (12.0-16.0); Mean Corpuscular HGB CONC 29.8 g/dL (32.0-36.0); Mean Corpuscular Hemoglobin 27.3 pg (27.0-31.0); Mean Corpuscular Volume 91.5 fl (78.0-98.0); Mean Platelet Volume 9.5 fL (7.4-10.4); Platelet Count 173 10x3/uL (130-400); Red Blood Cell (RBC) Count 3.19 mill/uL (4.20-5.40); White Blood Cell (WBC) Count 5.2 10x3/uL (4.8-10.8)
[2023-06-29] MEDS: cloNIDine 0.1 MG TAB PO SCH ×2 (05:31→17:46)
[2023-06-29 06:04] LABS: Anion Gap 12 mmol/L (10-20); BUN (Urea Nitrogen) 37 mg/dL (9.8-20.1); Calc. Creatinine Clearance 24 mL/min (70-130); Calcium 8.9 mg/dL (7.8-10.44); Carbon Dioxide 26 mmol/L (23-31); Chloride 105 mmol/L (98-107); Estimated GFR 17; Glucose 127 mg/dL (83-110); Potassium 3.5 mmol/L (3.5-5.1); Sodium 139 mmol/L (136-145)
[2023-06-29 06:05] LABS: ALT (SGPT) Less than 7 U/L (8-55); AST (SGOT) 12 U/L (5-34); Albumin 3.2 g/dL (3.4-4.8); Alkaline Phosphatase 64 U/L (40-110); Bilirubin, Direct 0.4 mg/dL (0.1-0.3); Bilirubin, Total 0.7 mg/dL (0.2-1.2); Protein, Total 5.7 g/dL (5.8-8.1)
[2023-06-29] MEDS ORDERED: Senokot S 8.6-50 MG TAB PO SCH (09:00)
[2023-06-29] MEDS: Mometasone 100 MCG/Formoterol 5 MCG 120 PUFF INHALER INH SCH (09:46)
[2023-06-29] MEDS: Isosorbide Dinitrate 20 MG TAB PO SCH (09:54)
[2023-06-29] MEDS: FLUoxetine HCl 10 MG CAP PO SCH (09:54)
[2023-06-29] MEDS: Saccharomyces boulardii 250 MG CAP PO SCH (09:54)
[2023-06-29] MEDS: Atorvastatin Calcium 10 MG TAB PO SCH (09:55)
[2023-06-29] MEDS: Heparin 5,000 UNITS/ML VIAL SC SCH ×2 (09:55→17:47)
[2023-06-29] MEDS: Fenofibrate Nanocrystallized 145 MG TAB PO SCH (09:55)
[2023-06-29] MEDS: Ferrous Sulfate 325 MG TAB PO SCH ×2 (09:55→17:32)
[2023-06-29] MEDS: Amoxicillin/Potassium Clav 500 MG TAB PO SCH (09:55)
[2023-06-29] MEDS: Furosemide 40 MG TAB PO SCH (09:55)
[2023-06-29 13:00] VITALS: BP 129/53; TEMP 97.6
[2023-06-29] MEDS: Febuxostat 40 MG TAB PO SCH (17:31)
== END 2023-06-29 17:48 | disposition home or self-care (01) | DRG 184 ==
LOC: ERS 00:28 → ERHOLD 02:18 → 2NO 15:17 → SURG B 06-22 15:16
PROVIDERS: ADMIT Specialist; ATTEND Specialist
PROC: 30233J1 Transfusion of Nonautologous Serum Albumin into Peripheral Vein, Percutaneous Approach (ICD-10-PCS; principal; 2023-06-22)
DX: S22.41XA Multiple fractures of ribs, right side, initial encounter for closed fracture (principal); I13.0 Hypertensive heart and chronic kidney disease with heart failure and stage 1 through stage 4 chronic kidney disease, or unspecified chronic kidney disease; J98.11 Atelectasis; N17.9 Acute kidney failure, unspecified; S26.91XA Contusion of heart, unspecified with or without hemopericardium, initial encounter; N39.0 Urinary tract infection, site not specified; I48.91 Unspecified atrial fibrillation; E78.00 Pure hypercholesterolemia, unspecified; M10.9 Gout, unspecified; I50.9 Heart failure, unspecified; M19.90 Unspecified osteoarthritis, unspecified site; G89.29 Other chronic pain; J44.9 Chronic obstructive pulmonary disease, unspecified; N18.9 Chronic kidney disease, unspecified; E11.22 Type 2 diabetes mellitus with diabetic chronic kidney disease; D64.9 Anemia, unspecified; W19.XXXA Unspecified fall, initial encounter; Y92.002 Bathroom of unspecified non-institutional (private) residence as the place of occurrence of the external cause; Z90.49 Acquired absence of other specified parts of digestive tract; Z87.891 Personal history of nicotine dependence
CPT/HCPCS: 0439T; 36415; 36416; 70450; 71045; 72125; 74022; 80048; 80076; 81001; 83735; 83880; 84100; 84484; 85025; 85610; 85730; 86850; 86900; 86901; 87077; 87086; 87186; 93005; 93010; 93306; 94664; 94760; 96374; J0696; J1644; J1940; J2272; J2543; J3490; J7070; J7120; J7620; P9047; Q5106